=== PATIENT | female | born 1955 | race Caucasian/White ===

== ENCOUNTER → 2023-05-10 07:47 | Outpatient (CLI) | payer MEDICARE, SELFPAY ==
--- NOTE | ~2023-05-10 | US_ITS ---
US abdomen limited INDICATION: Elevated liver enzymes PROCEDURE: Realtime right upper abdominal ultrasound. COMPARISON: No prior studies for comparison. FINDINGS: The pancreas is normal without focal mass or pancreatic ductal dilation. Liver echotexture is normal without focal mass or intrahepatic biliary dilatation. There is normal directional flow i n the portal vein. Gallbladder is surgically absent. Common bile duct measures 7 mm. No sonographic Diop's sign. IMPRESSION: 1: Unremarkable limited abdominal ultrasound postcholecystectomy. Reviewed, dictated and finalized at location L.
== END ==
PROVIDERS: PCP Nurse Practitioner; Visit Provider Nurse Practitioner
DX: R74.8 Abnormal levels of other serum enzymes (principal)
CPT/HCPCS: 76705

== ENCOUNTER 2024-12-10 07:49 | Inpatient (IN) | payer MEDICARE, SELFPAY ==
--- NOTE | ~2024-12-10 | MR_ITS ---
EXAMINATION: MR abdomen wo/w con DATE: 12/11/2024 12:40 INDICATION: Splenic mass TECHNIQUE: Magnetic resonance imaging (MRI) of the abdomen was performed without and with 16 mL Multi anastacio intravenous contrast. Sequences included coronal T2-weighted SS-FSE, coronal and axial FS 2D-F IESTA, axial STIR FSE, axial T2-weighted SS-FSE, axial T2-weighted FS SS-FSE, axial diffusion-weighte d SE, axial dual-echo T1-weighted FSPGR, and axial and coronal T1-weighted LAVA. Postcontrast axial T 1-weighted LAVA images were obtained in a time course. Postcontrast coronal T1-weighted LAVA images w ere obtained. COMPARISON: None. FINDINGS: Heart size is normal. Mild discoid and dependent atelectasis at the bilateral lower lobes. No pericar dial or pleural effusion. Magnetic field artifact associated with cholecystectomy clips the gallbladd er fossa. Liver, pancreas, bilateral adrenal glands and left kidney are normal. 3 subcentimeter T2 hy perintense nonenhancing cysts in the right kidney. There are couple T2 hyperintense splenic lesions t he larger measuring 1.9 cm and the smaller measuring 7 mm. The larger lesion appears complex cystic w ith multiple internal septations best appreciated on the T2-weighted SS FSE imaging with subtle enhan cement on the postcontrast imaging. Visualized portion of the bowels are unremarkable including a nor mal appendix. T1 hyperintense fat saturating hemangioma at T11. Mild S-shaped scoliosis with thoracol umbar dextrocurvature and lumbar levocurvature with mild spondylosis. IMPRESSION: 1. A couple indeterminate splenic lesions the larger measuring 2.0 cm. Imaging features are suggestiv e of complex cystic lesion such as a lymphangioma, hemangioma or hamartoma. Malignant splenic lesions are rare and are also unchanged by the minimal enhancement. Recommend 6-12 month follow-up pre and p ostcontrast MRI. Reviewed, dictated and finalized at location B. IMPRESSION: 1. A couple indeterminate splenic lesions the larger measuring 2.0 cm. Imaging features are suggestive of complex cystic lesion such as a lymphangioma, alec ioma or hamartoma. Malignant splenic lesions are rare and are also unchanged by the minimal enhancement. Recommend 6-12 month follow-up pre and postcontrast M RI.
--- NOTE | ~2024-12-10 | CT_ITS ---
CT of the Abdomen and Pelvis: Indication: Abdominal pain Technique: 2.5 mm axial scans were obtained through the abdomen and pelvis following intravenous adm inistration of 100 cc of Omnipaque 350. Dose reduction technique was used on this scan by utilizing a utomated exposure control and iterative reconstruction technique. The dose-length product (DLP) was 4 45.07 mGy-cm. Findings: Scans through the lung bases are unremarkable. The liver, pancreas, adrenals and kidneys are within normal limits. Cholecystectomy clips are present . 2.0 cm hypodense splenic mass present, inconsistent with simple cyst. No evidence of aortic aneurys m. No lymphadenopathy. There is extensive wall thickening and pericolonic inflammatory change at the distal sigmoid colon, c ompatible with acute diverticulitis. Possible small intramural abscess measuring 1.5 cm. No free air evident. No bowel obstruction. Images through the pelvis were performed. Urinary bladder unremarkable. No pelvic mass seen. Impression: Acute sigmoid diverticulitis with possible small 1.5 cm intramural abscess. 2.0 cm indeterminate hypodense splenic mass. Consider further evaluation with MR as indicated. Spleni c lesions are most, likely benign. Reviewed, dictated and finalized at location M. Impression: Acute sigmoid diverticulitis with possible small 1.5 cm intramural abscess. 2.0 cm indeterminate hypodense splenic mass. Consider further evaluation with M R as indicated. Splenic lesions are most, likely benign.
--- OUTSIDE RECORDS SUMMARY | 2024-12-10 07:52 | XMS_ITS | Referral Summary ---
Author Organization [place] 739[address] [facility] Address [facility] [place] [address] Care Team Providers Care Service Porter Name Role Phone Neo Doyle NP Primary Care Provider [phone] Allergies Active Allergy Reactions Criticality Noted Date Comments Penicillins Hives Medium 06/20/2019 Medications levothyroxine (SYNTHROID) 88 mcg tablet 05/05/2020 Active losartan (COZAAR) 100 mg tablet 04/28/2020 Activ e pravastatin (PRAVACHOL) 80 mg tablet 05/05/2020 Active atorvastatin calcium (ATORVASTATIN ORAL) 05/15/2022 Active Active Problems Problem Noted Date Diagnosed Date Screening for colon cancer 05/11/2020 Overview (05/11/2020): Added automatically from request for surgery [id number] Social History Tobacco Use Types Packs/Day Years Used Date Smoking Tobacco: Never Smokeless Tobacco: Never Alcohol Use Standard Drinks/Week Comments Yes 0 (1 standard drink = 0.6 oz pur e alcohol) Socially Comments No Sex and Gender Information Value Date Recorded Sex Assigned at Not on file Legal Sex 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 Gender Identity Not on file Sexual Orientation Choose not to disclose 2021 1:01 PM CARB[employer] CAPT[employer]OWER PLANT OPERATOR Last Filed Vital Signs Vital Sign Reading Time Taken Comments Blood Pressure 112/60 06/29/2022 10:15 AM CARB[employer] CAPT[employer]OWER PLANT OPERATOR Pulse 70 05/20/2020 9:50 AM CDT Temperature 36.3 C (97.3 F) 05/20/2020 9:34 AM CDT Respiratory Rate 18 05/20/2020 9:50 AM CDT Oxygen Saturation 95% 05/20/2020 9:50 AM CDT Inhaled Oxygen Concentration - - Weight 75.3 kg (166 lb) 06/29/2022 10:15 AM CAR[employer] PLANT OPERATOR Height 167.6 cm (5' 6 ) 06/29/2022 10:15 AM CAR[employer] PLANT OPERATOR Body Mass Index 26.79 06/29/2022 10:15 AM CAR[employer] CAPT[employer] POWER PLANT OPERATOR Plan of Treatment Not on file Medical Devices Implanted Type Area Clinical Writer Device Identifier Shelf Expiration Date Model / Serial / Lot Bard Peripheral Vascular Ultraclip Bard 17ga 10cm 2 Trigger Permanent Ultrasound [id number] - [id number] Implanted:Qty: 1 on 08/16/2022 at [facility] Right: Breast Bard Peripheral Vascular [id number] / / Procedures Procedure Name Priority Date/Time Associated Diagnosis Comments SCREENING MAMMOGRAM BILATERAL W GABO Schedule Routine, Read Routine (OP Routine) 05/27/2024 9:56 AM CDT Screening mammogram, encounter for COLONOSCOPY 05/20/2020 9:07 AM CDT from Last 3 Months or Most Recently Relevant to Health Maintenance Results * Screening Mammogram Bilateral W Gabo (05/27/2024 9:56 AM CDT) Anatomical Region Laterality Modality Breast Bilateral Mammography Narrative 05/28/2024 5:22 PM CDT Mammogram Technique: Bilateral Digital Breast Tomosynthesis, Bilateral C-view 2D Screening mammogram. Views obtained: bilateral craniocaudal and bilateral mediolateral oblique. Computer Aided Detection was performed. Mammogram Findings: The present examination has been compared to prior imaging studies performed at [facility] on 05/29/2017 and 06/07/2017, and at [facility] on 05/21/2018, 06/03/2018, 11/25/2018, 06/20/2019, 07/05/2020, 06/02/2021, 06/08/2022, 08/02/2022 and 05/17/2023. There are scattered areas of fibroglandular density. There is no suspicious abnormality in either breast. There are no significant changes from the prior study. Impression: There is no mammographic evidence of malignancy. Annual screening mammography is recommended. OVERALL FINAL ASSESSMENT: BI-RADS CATEGORY 1: Negative. Procedure Note Zoraida Conti MD - 05/28/2024 Mammogram Technique: Bilateral Digital Breast Tomosynthesis, Bilateral C-view 2D Screening mammogram. Views obtained: bilateral craniocaudal and bilateral mediolateral oblique. Computer Aided Detection was performed. Mammogram Findings: The present examination has been compared to prior imaging studies performed at [facility] on 05/29/2017 and 06/07/2017, and at [facility] on 05/21/2018, 06/03/2018, 11/25/2018, 06/20/2019, 07/05/2020, 06/02/2021, 06/08/2022, 08/02/2022nd 05/17/2023. There are scattered areas of fibroglandular density. There is no suspicious abnormality in either breast. There are no significant changes from the prior study. Impression: There is no mammographic evidence of malignancy. Annual screening mammography is recommended. OVERALL FINAL ASSESSMENT: BI-RADS CATEGORY 1: Negative. us Self Screening Mammogram IMG MAMMO PROCEDURES Fi nal Result * COLONOSCOPY (05/20/2020 9:07 AM CDT) Anatomical Region Laterality Modality Other Narrative Procedure Note Froy Deleon MD - 05/20/2020 9:07 AM CDT ENDOSCOPY LAB Patient Name: Sylvia Burgess Procedure Date: 05/20/2020 9:07 AM Date of : 1955 Admit Type: Outpatient Age: 64 Gender: Female Attending MD: Gregorio Deleon M.D. Room: [facility] ENDOSCOPY ROOM 03 Note Status: Finalized Procedure: Colonoscopy Indications: surveillance: Personal history of colonic polyps, Last colonoscopy: June 2010 Providers: Gregorio Deleon M.D. Referring MD: Wilver Huddleston M.D. Medicines: Monitored Anesthesia Care Complications: No immediate complications. Estimated Blood Loss: Estimated blood loss was minimal. Procedure: Pre-Anesthesia Assessment: - Immediately prior to administration of medications,the patient was re-assessed for adequacy to receivesedatives. The benefits, risks and alternatives of the procedureand sedation were discussed and informed consent wasobtained. All questions were answered. Please refer to the signed informed consent document in the medical record. Thescope was passed under direct vision. The [id number] introduced through the anus and advanced to the cecum, identified by appendiceal orifice and ileocecal valve.The colonoscopy was performed without difficulty. Thepatient tolerated the procedure well. The quality of the bowel preparation was good. The quality of the bowelpreparation was evaluated using the BBPS ([place] Bowel Preparation Scale) with scores of: Right Colon = 3, TransverseColon = 3 and Left Colon = 3 (entire mucosa seen well with no residual staining, small fragments of stool or opaque liquid). The total BBPS score equals 9. Bowel prep was administered using a split dose. Findings: A 6 mm polyp was found in the descending colon. The polyp wassessile. The polyp was removed with a cold snare. Resection and retrieval were complete. Multiple small and large-mouthed diverticula were found in thesigmoid colon and descending colon. The exam was otherwise without abnormality on direct and retroflexion views. Impression: - One 6 mm polyp in the descending colon, removed witha cold snare. Resected and retrieved. - Diverticulosis in the sigmoid colon and in the descending colon. - The examination was otherwise normal on direct and retroflexion views. Recommendation: - Await pathology results. Repeat colonoscopy in 5years for surveillance. Electronically signed by Gregorio Deleon MD Gregorio Deleon M.D. 05/20/2020 9:30:32 AM Number of Addenda: 0 Note Initiated On: 05/20/2020 9:07 AM Froy Deleon MD ENDOSCOPY PROCEDURES Final Result from Last 3 Months or Most Recently Relevant to Health Maintenance Insurance [facility] MEDICARE ADVANTAGE [facility] Address: [facility] [address] [place] [address] Rodolfo GREEN, ARNULFO [id number] UHC MEDICARE ADVANTAGE [facility] Address: [address] [address] [place] [address] [facility] MEDICARE ADVANTAGE [facility] Address: [address] [address] [place] [address] Advance Directives For more information, please contact: [phone] * Full Code (Latest Code Status on File) Date Activated Date Inactivated Comments 05/20/2020 8:28 AM 05/20/2020 2:32 PM Care Teams Service Porter Relationship Specialty Start Date End Date Neo Doyle NP [address] [place] [address] PCP - General Nurse Practitioner 05/09/23
--- OUTSIDE RECORDS SUMMARY | 2024-12-10 07:52 | XMS_ITS | Clinical Summary ---
Author Organization [place] [address] [facility] Address [facility] [place] [address] Care Team Providers Care Records Clerk Name Role Phone Neo Doyle NP Primary Care Provider Allergies Active Allergy Reactions Criticality Noted Date Comments Penicillins Hives Medium 06/20/2019 Medications levothyroxine (SYNTHROID) 88 mcg tablet 05/05/2020 Active losartan (COZAAR) 100 mg tablet 04/28/2020 Activ e pravastatin (PRAVACHOL) 80 mg tablet 05/05/2020 Active atorvastatin calcium (ATORVASTATIN ORAL) 05/15/2022 Active Active Problems Problem Noted Date Diagnosed Date Screening for colon cancer 05/11/2020 Overview (05/11/2020): Added automatically from request for surgery [id number] Surgical History Surgery Date Site/Laterality Comments BREAST BIOPSY 07/08/2019 Right COLONOSCOPY CHOLECYSTECTOMY TUBAL LIGATION Medical History Medical History Date Comments Hx of adenomatous colonic polyps 2005 Colon polyp Hypertension Hyperlipidemia Hypothyroidism Family History Medical History Relation Name Comments Breast cancer Sister Ovarian cancer Neg Hx Relation Name Status Comments Sister Alive Social History Tobacco Use Types Packs/Day Years Used Date Smoking Tobacco: Never Smokeless Tobacco: Never Alcohol Use Standard Drinks/Week Comments Yes 0 (1 standard drink = 0.6 oz pur e alcohol) Socially Comments No Sex and Gender Information Value Date Recorded Sex Assigned at Not on file Legal Sex Female 9:21 PM VP DELIVERY Gender Identity Not on file Sexual Orientation Choose not to disclose 2021 1:01 PM VP DELIVERY Obstetrics History Para Term AB IAB SAB Ectopic Multiple Livin g Live Births 3 3 3 3 3 Date Outcome GA Total Labor Labor/2nd/3rd Weight Sex Type Anes PTL Evy A1 A5 Name Clin Term Term Term Last Filed Vital Signs Vital Sign Reading Time Taken Comments Blood Pressure 112/60 06/29/2022 10:15 AM VP DELIVERY Pulse 70 05/20/2020 9:50 AM CDT Temperature 36.3 C (97.3 F) 05/20/2020 9:34 AM CDT Respiratory Rate 18 05/20/2020 9:50 AM CDT Oxygen Saturation 95% 05/20/2020 9:50 AM CDT Inhaled Oxygen Concentration - - Weight 75.3 kg (166 lb) 06/29/2022 10:15 AM VP DELIVERY Height 167.6 cm (5' 6 ) 06/29/2022 10:15 AM VP DELIVERY Body Mass Index 26.79 06/29/2022 10:15 AM VP DELIVERY Plan of Treatment Health Maintenance Due Date Last Done Comments Depression Screening 1955 Hepatitis C Screening 1955 Osteoporosis Screening-Bone Density Scan 1955 DTaP/Tdap/Td Vaccine (1 - Tdap) 1965 Hepatitis B Screening 1972 Pneumococcal vaccine 65+ (1 of 1 - PCV) 2004 Zoster Vaccine (1 of 2) 2004 Well Visit 65+ 11/16/2019 Fall Risk Assessment 05/20/2021 05/20/2020 Influenza Vaccine (Season Ended) 2025 05/17/20 23, 05/22/2012 Breast Cancer Screening-Mammogram 05/27/2025 05/27/2024, 05/17/2023, 08/02/2022, Additional history exists Colon Cancer Screening-Colonoscopy 05/20/2030 05/20/2020 Colon Cancer Screening-CT Colonography Discontinued 05/20/2020 Colon Cancer Screening-DNA Stool Discontinued 05/20/20 Colon Cancer Screening-FIT Discontinued 05/20/2020 Colon Cancer Screening-Sigmoidoscopy Discontinued 05/20/2020 Medical Devices Implanted Type Area Operations Examiner Device Identifier Shelf Expiration Date Model / Serial / Lot Bard Peripheral Vascular Ultraclip Bard 17ga 10cm 2 Trigger Permanent Ultrasound [id number] - [id number] Implanted:Qty: 1 on 08/16/2022 at [facility] Right: Breast Bard Peripheral Vascular [id number] / / Procedures Procedure Name Priority Date/Time [...] compared to prior imaging studies performed at [facility] on 05/29/2017 and 06/07/2017, and at [facility] on 05/21/2018, 06/03/2018, 11/25/2018, 06/20/2019, 07/05/2020, 06/02/2021, [...] compared to prior imaging studies performed at [facility] on 05/29/2017 and 06/07/2017, and at [facility] on 05/21/2018, 06/03/2018, 11/25/2018, 06/20/2019, 07/05/2020, 06/02/2021, [...] Female Attending MD: Gregorio Deleon M.D. Room: [facility] ENDOSCOPY ROOM 03 Note Status: Finalized [...] Thescope was passed under direct vision. The [id number] introduced through the anus and advanced to the cecum, identified by appendiceal orifice and ileocecal valve.The colonoscopy was performed without difficulty. Thepatient tolerated the procedure well. The quality of the bowel preparation was good. The quality of the bowelpreparation was evaluated using the BBPS ([place] Bowel Preparation Scale) with scores of: Right [...] surveillance. Electronically signed by Gregorio Deleon MD Wilber HenryD. 05/20/2020 9:30:32 AM Number of Addenda: 0 Note Initiated On: 05/20/2020 9:07 AM Froy Deleon MD ENDOSCOPY PROCEDURES Final Result from Last 3 Months or Most Recently Relevant to Health Maintenance Insurance [facility] MEDICARE ADVANTAGE UHC MEDICARE ADVANTAGE UHC MEDICARE ADVANTAGE Advance Directives For more information, please contact: [phone] * Full Code (Latest Code Status on File) Date Activated Date Inactivated Comments 05/20/2020 8:28 AM 05/20/2020 2:32 PM Care Teams Records Clerk Relationship Specialty Start Date End Date Neo Doyle NP [address] [place] [address] PCP - General Nurse Practitioner 05/09/23
[2024-12-10 08:01] VITALS: BP 129/68; PULSE 78; RESP 14; O2SAT 94
[2024-12-10 08:10] LABS: Basophils Percent Auto 0.2 % (0.2-1.2); Eosinophils Absolute Auto 0.1 K/mm3 (0-0.3); Eosinophils Percent Auto 0.8 % (0-4.4); Hemoglobin 13.6 g/dL (12.0-15.0); Immature Granulocyte Absolute 0.05 K/mm3 (0.00-0.031); Immature Granulocyte Percent A 0.4 % (0-0.5); Lymphocytes Absolute Auto 2.92 K/mm3 (0.9-3.2); Lymphocytes Percent Auto 24.3 % (18.3-44.2); Mean Corpuscular HGB Conc 31.6 g/dl (32-36); Mean Corpuscular Hemoglobin 27.8 pg (26-34); Mean Corpuscular Volume 87.8 fl (80-100); Monocytes Absolute Auto 1.4 K/mm3 (0.1-0.6); Neutrophils Absolute Auto 7.5 K/mm3 (1.3-6.7); Neutrophils Percent Auto 62.3 % (45.5-73.1); Platelet Count Result 235 k/mm3 (150-375); Red Cell Distribution Width 14.6 % (11.5-14.5)
[2024-12-10 08:22] LABS: Alanine Aminotransferase 37 U/L (6-35); Albumin Level 4.1 g/dL (3.5-5.1); Alkaline Phosphatase 60 U/L (38-126); Anion Gap 8 mmol/L (4-12); Aspartate Amino Transferase 30 U/L (14-36); Bilirubin,Total 0.6 mg/dL (0.2-1.3); Blood Urea Nitrogen 14 mg/dL (7-17); Calcium 9.9 mg/dL (8.4-10.2); Carbon Dioxide 27 mmol/L (22-30); Chloride 103 mmol/L (98-107); Estimated CRCL calculation 57 ml/min; Estimated Glomerular Filt Rate > 60; Glucose 112 mg/dL (65-110); Lipase 70 U/L (23-300); Sodium 138 mmol/L (137-145)
--- OUTSIDE RECORDS SUMMARY | 2024-12-10 08:22 | XMS_ITS | Referral Summary ---
Author Organization [place] [address]267[address] [facility] Address [facility] [place] [address] Care Team Providers Care Sql Architect Name Role Phone Neo Doyle NP Primary Care Provider [phone] Allergies Active Allergy Reactions Criticality Noted Date Comments Penicillins Hives Medium 06/20/2019 Medications levothyroxine (SYNTHROID) 88 mcg tablet 05/05/2020 Active losartan (COZAAR) 100 mg tablet 04/28/2020 Activ e pravastatin (PRAVACHOL) 80 mg tablet 05/05/2020 Active atorvastatin calcium (ATORVASTATIN ORAL) 05/15/2022 Active Active Problems Problem Noted Date Diagnosed Date Screening for colon cancer 05/11/2020 Overview (05/11/2020): Added automatically from request for surgery [id number] Social History Tobacco Use Types Packs/Day Years Used Date Smoking Tobacco: Never Smokeless Tobacco: Never Alcohol Use Standard Drinks/Week Comments Yes 0 (1 standard drink = 0.6 oz pur e alcohol) Socially Comments No Sex and Gender Information Value Date Recorded Sex Assigned at Not on file 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 Gender Identity Not on file Sexual Orientation Choose not to disclose 2021 1:01 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 Last Filed Vital Signs Vital Sign Reading Time Taken Comments Blood Pressure 112/60 06/29/2022 10:15 AM GLOVE PARTS CUTTER Pulse 70 05/20/2020 9:50 AM CDT Temperature 36.3 C (97.3 F) 05/20/2020 9:34 AM CDT Respiratory Rate 18 05/20/2020 9:50 AM CDT Oxygen Saturation 95% 05/20/2020 9:50 AM CDT Inhaled Oxygen Concentration - - Weight 75.3 kg (166 lb) 06/29/2022 10:15 AM GLOVE PARTS CUTTER Height 167.6 cm (5' 6 ) 06/29/2022 10:15 AM GLOVE PARTS CUTTER Body Mass Index 26.79 06/29/2022 10:15 AM GLOVE PARTS CUTTER Plan of Treatment Not on file Medical Devices Implanted Type Area Face Hardener Device Identifier Shelf Expiration Date Model / Serial / Lot Bard Peripheral Vascular Ultraclip Bard 17ga 10cm 2 Trigger Permanent Ultrasound [id number] - [id number] Implanted:Qty: 1 on 08/16/2022 at [facility] Right: Breast Bard Peripheral Vascular [id number] / / Procedures Procedure Name Priority Date/Time [...] compared to prior imaging studies performed at [facility] on 05/29/2017 and 06/07/2017, and at [facility] on 05/21/2018, 06/03/2018, 11/25/2018, 06/20/2019, [...] compared to prior imaging studies performed at [facility] on 05/29/2017 and 06/07/2017, and at [facility] on 05/21/2018, 06/03/2018, 11/25/2018, 06/20/2019, [...] Female Attending MD: Gregorio Deleon M.D. Room: [facility] ENDOSCOPY ROOM 03 Note Status: Finalized [...] Thescope was passed under direct vision. The [id number] introduced through the anus and advanced to the cecum, identified by appendiceal orifice and ileocecal valve.The colonoscopy was performed without difficulty. Thepatient tolerated the procedure well. The quality of the bowel preparation was good. The quality of the bowelpreparation was evaluated using the BBPS ([place] Bowel Preparation Scale) with scores of: Right [...] Recently Relevant to Health Maintenance Insurance [facility] MEDICARE ADVANTAGE [facility] Address: [facility] [address] [place] [address] Rodolfo GREEN, ARNULFO [id number] UHC MEDICARE ADVANTAGE [facility] MEDIC[facility] Address: [address] [address] [place] [address] [facility] MEDICARE ADVANTAGE [facility] Address: [address] [address] [place] [address] Advance Directives For more information, please contact: [phone] * Full Code (Latest Code Status on File) Date Activated Date Inactivated Comments 05/20/2020 8:28 AM 05/20/2020 2:32 PM Care Teams Sql Architect Relationship Specialty Start Date End Date Neo Doyle NP [address] [place] [address] PCP - General Nurse Practitioner 05/09/23
--- OUTSIDE RECORDS SUMMARY | 2024-12-10 08:22 | XMS_ITS | Clinical Summary ---
Author Organization [place] [id number] [facility] Address [facility] [place] [address] Care Team Providers Care Shipmaster Name Role Phone Neo Doyle NP Primary Care Provider [phone] Allergies Active Allergy Reactions Criticality Noted Date Comments Penicillins Hives Medium 06/20/2019 Medications levothyroxine (SYNTHROID) 88 mcg tablet 05/05/2020 Active losartan (COZAAR) 100 mg tablet 04/28/2020 Activ e pravastatin (PRAVACHOL) 80 mg tablet 05/05/2020 Active atorvastatin calcium (ATORVASTATIN ORAL) 05/15/2022 Active Active Problems Problem Noted Date Diagnosed Date Screening for colon cancer 05/11/2020 Overview (05/11/2020): Added automatically from request for surgery [id number] Surgical History Surgery Date Site/Laterality Comments BREAST [...] on file Legal Sex Female 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 Gender Identity Not on file Sexual Orientation Choose not to disclose 2021 1:01 PM BOTTLE CASER Obstetrics History Para Term AB IAB SAB Ectopic Multiple Livin g Live Births 3 3 3 3 3 Date Outcome GA Total Labor Labor/2nd/3rd Weight Sex Type Anes PTL Evy A1 A5 Name Clin Term Term Term Last Filed Vital Signs Vital Sign Reading Time Taken Comments Blood Pressure 112/60 06/29/2022 10:15 AM BOTTLE CASER Pulse 70 05/20/2020 9:50 AM CDT Temperature 36.3 C (97.3 F) 05/20/2020 9:34 AM CDT Respiratory Rate 18 05/20/2020 9:50 AM CDT Oxygen Saturation 95% 05/20/2020 9:50 AM CDT Inhaled Oxygen Concentration - - Weight 75.3 kg (166 lb) 06/29/2022 10:15 AM BOTTLE CASER Height 167.6 cm (5' 6 ) 06/29/2022 10:15 AM BOTTLE CASER Body Mass Index 26.79 06/29/2022 10:15 AM BOTTLE CASER Plan of Treatment Health Maintenance Due Date [...] Discontinued 05/20/2020 Medical Devices Implanted Type Area Mesh Cutter Device Identifier Shelf Expiration Date Model / Serial / Lot Bard Peripheral Vascular Ultraclip Bard 17ga 10cm 2 Trigger Permanent Ultrasound [id number] - [id number] Implanted:Qty: 1 on 08/16/2022 at [facility] Right: Breast Bard Peripheral Vascular [id number] / / Procedures Procedure Name Priority Date/Time [...] compared to prior imaging studies performed at [facility] on 05/29/2017 and 06/07/2017, and at [facility] on 05/21/2018, 06/03/2018, 11/25/2018, 06/20/2019, [...] compared to prior imaging studies performed at [facility] on 05/29/2017 and 06/07/2017, and at [facility] on 05/21/2018, 06/03/2018, 11/25/2018, 06/20/2019, [...] Female Attending MD: Gregorio Deleon M.D. Room: [facility] ENDOSCOPY ROOM 03 Note Status: Finalized Procedure: [...] Thescope was passed under direct vision. The [id number] introduced through the anus and advanced to the cecum, identified by appendiceal orifice and ileocecal valve.The colonoscopy was performed without difficulty. Thepatient tolerated the procedure well. The quality of the bowel preparation was good. The quality of the bowelpreparation was evaluated using the BBPS ([place] Bowel Preparation Scale) with scores of: Right [...] Recently Relevant to Health Maintenance Insurance [facility] MEDICARE ADVANTAGE [facility] MEDIC[facility] Address: [address] [address] UHC MEDICARE ADVANTAGE [facility] Address: [address] [address] UHC MEDICARE ADVANTAGE Advance Directives For more information, please contact: [phone] * Full Code (Latest Code Status on File) Date Activated Date Inactivated Comments 05/20/2020 8:28 AM 05/20/2020 2:32 PM Care Teams Shipmaster Relationship Specialty Start Date End Date Neo Doyle NP [address] [place] [address] PCP - General Nurse Practitioner 05/09/23
[2024-12-10] MEDS: ONDANSETRON INJ 4 MG/2 ML VIAL IV PUSH (08:58)
[2024-12-10] MEDS: SODIUM CHLORIDE 0.9% IV 1,000 ML 999 ML IV CONT (08:58)
[2024-12-10] MEDS: MORPHINE SULFATE (*CRX) 4 MG/ML INJ 2 MG IV PUSH (08:59)
[2024-12-10 09:04] VITALS: BP 114/74; PULSE 71; RESP 14; O2SAT 97
--- NOTE | 2024-12-10 09:38 | ED_ITS ---
HPI - General Adult General Chief complaint: Abdominal Pain Stated complaint: LLQ pain Time Seen by Provider: 12/10/24 08:05 History of Present Illness HPI narrative: Patient is a 6-year-old female who presents ER with left lower quadrant abdominal pain. Intermittent pain over last month. Worsening over last week. Very tender worse with movement. Has had some diarrhea. NNo chest pain or chest pressure. No urinary symptoms. Related Data Home Medications ?Medication ?Instructions ?Recorded ?Confirmed ?Last Taken ?Type losartan 100 mg tablet 50 mg PO DAILY 12/10/24 12/10/24 12/09/24 21:30 History 50 mg Allergies Allergy/AdvReac Type Severity Reaction Status Date / Time penicillin G Allergy Mild hives Verified 12/10/24 07:50 Review of Systems 2 Review of Systems: All systems reviewed & are unremarkable except as noted in HPI and below Constitutional: Constitutional: Reports no additional constitutional complaints Cardiovascular: Cardiovascular: Reports no additional cardiovascular complaints Respiratory: Respiratory: Reports no additional respiratory complaints Gastrointestinal: Gastrointestinal: Reports no additional gastrointestinal complaints [facility] Past Medical History Medical History (Updated 12/10/24 @ 18:47 by Kalia Martin MD) GERD (gastroesophageal reflux disease) Hypothyroidism History of retinal detachment Right Eye Essential hypertension Diverticulosis Mixed hyperlipidemia Surgical History Surgical History (Updated 12/10/24 @ 12:27 by Lizbeth Bentley APRN) History of tubal ligation History of tonsillectomy History of cholecystectomy Family History Family History (Updated 12/10/24 @ 12:12 by Mindy Huertas RN) Grandparent Family history of lung cancer Carcinoma of colon Mother Family history of osteoarthritis Family history of heart disease in male family member before age 55 Family history of elevated blood lipids Family history of diabetes mellitus in first degree relative Hypertension Father Patient's father is in good health Family history of Alzheimer's disease Sibling Breast cancer Social History Social History Smoking status: Never smoker Second hand tobacco smoke exposure: No Alcohol intake: current Drinks per week: 2 Substance use: never Substance use type: does not use Do You Feel Safe in your Home?: Yes Lack of Transportation: No Lack of Food: Never True Current Housing: I Have Housing Concerned About Future Housing: No Difficulty Paying Gas/Electric Bills: No Difficulty Paying for Meds: No Currently Unemployed: No Education: Associate Degree Difficulty w/ Childcare or Family Care: No Spiritual care concerns: No Exam 2 Narrative: GENERAL: Well-appearing, well-nourished, and in no acute distress. HEAD: Normocephalic, atraumatic. ENT: Mucous membranes moist. CHEST: Clear to auscultation. No respiratory distress. HEART: Regular rate and rhythm. Normal peripheral pulses. ABDOMEN: Soft, tender palpation left lower quadrant with guarding, nondistended, normal active bowel sounds. EXTREMITIES: Normal range of motion. No edema. SKIN: Warm, dry, no rash. NEURO: Alert and oriented x3. PSYCH: Normal mood and affect. Course Course Emergency Course: 938: Discussed with General surgery. Recommends hospitalist admission. They are happy to consult if needed but would not drain at this time. Recommend IV antibiotics. Vital Signs Vital signs: Vital Signs Pulse Rate 78 12/10/24 08:01 Respiratory Rate 14 12/10/24 08:01 Blood Pressure 129/68 12/10/24 08:01 Pulse Oximetry 94 12/10/24 08:01 Temperature 97.9 F 12/10/24 14:00 Pulse Rate 70 12/10/24 14:00 Respiratory Rate 18 12/10/24 14:00 Blood Pressure 109/59 L 12/10/24 14:00 Pulse Oximetry 96 12/10/24 14:00 Oxygen Delivery Room Air 12/10/24 12:30 Medical Decision Making Vital Signs Vital Signs: Vital Signs Pulse Rate 78 12/10/24 08:01 Respiratory Rate 14 12/10/24 08:01 Blood Pressure 129/68 12/10/24 08:01 Pulse Oximetry 94 12/10/24 08:01 Temperature 97.9 F 12/10/24 14:00 Pulse Rate 70 12/10/24 14:00 Respiratory Rate 18 12/10/24 14:00 Blood Pressure 109/59 L 12/10/24 14:00 Pulse Oximetry 96 12/10/24 14:00 Oxygen Delivery Room Air 12/10/24 12:30 Lab Data 12/10/24 08:04 12/10/24 08:04 Labs: Lab Results 12/10/24 12/10/24 Range/Units 08:04 09:51 WBC 12.0 H (4.5-10.0) K/mm3 RBC 4.90 (4.2-5.4) M/mm3 Hgb 13.6 (12.0-15.0) g/dL Hct 43.0 (37.0-47.0) % MCV 87.8 (80-100) fl MCH 27.8 (26-34) pg MCHC 31.6 L (32-36) g/dl RDW 14.6 H (11.5-14.5) % Plt Count 235 (150-375) k/mm3 MPV 10.0 (7.4-10.4) fl Immature Gran % (Auto) 0.4 (0-0.5) % Neut % (Auto) 62.3 (45.5-73.1) % Lymph % (Auto) 24.3 (18.3-44.2) % [place] % (Auto) 12.0 H (2.6-8.5) % Eos % (Auto) 0.8 (0-4.4) % Baso % (Auto) 0.2 (0.2-1.2) % Lymph # (Auto) 2.92 (0.9-3.2) K/mm3 [place] # (Auto) 1.4 H (0.1-0.6) K/mm3 Eos # (Auto) 0.1 (0-0.3) K/mm3 Baso # (Auto) 0.0 (0.0-0.1) K/mm3 Abs Immat Gran (auto) 0.05 H (0.00-0.031) K/mm3 Absolute Neuts (auto) 7.5 H (1.3-6.7) K/mm3 Absolute Nucleated RBC 0.000 (0.0-0.012) K/mm3 Nucleated RBC % 0.0 (0.0-0.2) % Sodium 138 (137-145) mmol/L Potassium 4.0 (3.4-5.0) mmol/L Chloride 103 (98-107) mmol/L Carbon Dioxide 27 (22-30) mmol/L Anion Gap 8 (4-12) mmol/L BUN 14 (7-17) mg/dL Creatinine 0.75 (0.7-1.0) mg/dL Estim Creat Clear Calc 57 ml/min Estimated GFR > 60 (59 - ) Glucose 112 H (65-110) mg/dL Calcium 9.9 (8.4-10.2) mg/dL Total Bilirubin 0.6 (0.2-1.3) mg/dL AST 30 (14-36) U/L ALT 37 H (6-35) U/L Alkaline Phosphatase 60 (38-126) U/L Total Protein 7.0 (6.3-8.2) g/dL Albumin 4.1 (3.5-5.1) g/dL Lipase 70 (23-300) U/L Urine Color Yellow (Yellow) Urine Appearance Clear (Clear) Urine pH 6.0 (5.0-9.0) Ur Specific [place] <= 1.005 (1.001-1.035) Urine Protein Negative (Negative) mg/dL Urine Glucose (UA) Negative (Negative) mg/dL Urine Ketones Negative (Negative) mg/dL Ur Blood (Man) Trace-intact H (Negative) Urine Nitrate Negative (Negative) Urine Bilirubin Negative (Negative) Urine Urobilinogen 0.2 (<2.0) mg/dL Leukocyte Esterase Rfl 1+ H (Negative) RAOUL/UL Urine RBC 0-2 (0-2) /hpf Urine WBC 6-10 H (0-3) /hpf Ur Squamous Epith Cells None seen (Few) /hpf Urine Bacteria None seen /hpf Urine Casts 0-2 Imaging Data Radiologist's impression: ITS Impressions Abdomen/Pelvis CT 12/10/24 09:02 Impression: Acute sigmoid diverticulitis with possible small 1.5 cm intramural abscess. 2.0 cm indeterminate hypodense splenic mass. Consider further evaluation with MR as indicated. Splenic lesions are most, likely benign. Discharge Plan Discharge Clinical Impression: Diverticulitis of intestine with abscess Patient Disposition: Still a Patient Condition: Stable
[2024-12-10 09:53] VITALS: BP 140/73; PULSE 67; RESP 15; TEMP 36.7; O2SAT 99
[2024-12-10 10:03] LABS: Bacteria Urine None Seen /hpf; Non Pathogenic Casts 0-2; RBC Urine 0-2 /hpf (0-2); Squamous Epithelial Cell Urine None Seen /hpf (Few)
[2024-12-10 10:06] LABS: Add Urine Microscopic? YES
[2024-12-10 10:07] LABS: Appearance Urine Clear (Clear); Bilirubin Urine Negative (Negative); Blood Urine Trace-intact (Negative); Color Urine Yellow (Yellow); Glucose Urine UA Negative (Negative); Ketones Urine Negative (Negative); Nitrate Urine Negative (Negative); Protein Urine Negative (Negative); Specific Grav Ur <= 1.005 (1.001-1.035); Urobilinogen Urine 0.2 mg/dL (<2.0)
[2024-12-10 10:08] LABS: Leukocyte Esterase Ur 1+ LEU/UL (Negative)
[2024-12-10] MEDS: metroNIDAZOLE 500 MG/ISO 100ML 500 MG/100 ML BAG 100 MG IVPB ×2 (10:14→17:19)
[2024-12-10 12:02] VITALS: BMI 27.8
--- NOTE | 2024-12-10 12:07 | ADMGEN ---
This patient, Sylvia Burgess, was admitted to 3 Med Surg Room 303-01. Patient/family oriented to hospital policies and general routines including ID bracelet, bed and alarms, visiting hours, pain management, procedures, bathroom and other care routines, personal items, smoking policy, room service/diet, and visiting hours. Information on how to activate the Rapid Response Team has been discussed. Patient/Family are encouraged to report perceived risks to care and to ask questions if they do not understand what they are told or what they should do.
--- NOTE | 2024-12-10 12:18 | P.HP_ITS ---
H&P: HPI History of Present Illness Date/Time: 12/10/24 12:18 Chief Complaint: Abdominal Pain Narrative: 69 y/o F with PMH of hypertension, hyperlipidemia, and hyperthyroidism presents here with abdominal pain. The patient presents here from home for further evaluation of abdominal pain on 12/10/24. She reports that she has been experiencing left lower abdominal pain with radiation into her left groin since mid September. She initially had it for just a few days and resolved with Ibuprofen. Then returned in the last few days but this time did not go away with Ibu and has been more progressive. She reports the pain has been constant but the severity varied widely. No alleviating or aggravating factors. She describes as sharp and crampy. She then developed constipation, she estimates she did not pass a bowel movement for 3 days. She then developed diarrhea yesterday, 12/09. She estimates she has gone 12 times in last 24 hours. Today developed mild nausea without vomiting. She denies accompanying fever, chills, body aches. She has a history of a cholecystectomy and tubal ligation, no further GI/ surgeries. Denies any significant GI history. Initial VS at presentation: 90? F, HR 70, RR 14, 129/60, and 94% on RA. ED workup showed: WBC 12.0, no anemia, no significant electrolyte derangements, creatinine 0.75 and GFR >60, glucose 112, UA suspicious for UTI. CT of the abdomen/pelvis showed an acute sigmoid diverticulitis with possible small 1.5 cm intramural abscess, 2 cm indeterminate hypodense splenic mass. Review of Systems Review of Systems: All systems reviewed & are unremarkable except as noted in HPI and below [facility] Past Medical History Medical History GERD (gastroesophageal reflux disease) Hypothyroidism History of retinal detachment Right Eye Essential hypertension Diverticulosis Mixed hyperlipidemia Surgical History Surgical History History of tubal ligation History of tonsillectomy History of cholecystectomy Family History Family History Grandparent Family history of lung cancer Carcinoma of colon Mother Family history of osteoarthritis Family history of heart disease in male family member before age 55 Family history of elevated blood lipids Family history of diabetes mellitus in first degree relative Hypertension Father Patient's father is in good health Family history of Alzheimer's disease Sibling Breast cancer Social History Social History Smoking status: Never smoker Second hand tobacco smoke exposure: No Alcohol intake: current Drinks per week: 2 Substance use: never Substance use type: does not use Do You Feel Safe in your Home?: Yes Lack of Transportation: No Lack of Food: Never True Current Housing: I Have Housing Concerned About Future Housing: No Difficulty Paying Gas/Electric Bills: No Difficulty Paying for Meds: No Currently Unemployed: No Education: Associate Degree Difficulty w/ Childcare or Family Care: No Spiritual care concerns: No Meds Home Medications and Allergies Home Medications ?Medication ?Instructions ?Recorded ?Confirmed ?Type atorvastatin 40 mg tablet 40 mg PO DAILY #90 tabs 05/20/24 12/10/24 Rx levothyroxine 50 mcg tablet 50 mcg PO DAILY #90 tabs 08/15/24 12/10/24 Rx losartan 100 mg tablet 50 mg PO DAILY 12/10/24 12/10/24 History Allergies Allergy/AdvReac Type Severity Reaction Status Date / Time penicillin G Allergy Mild hives Verified 12/10/24 07:50 Vital Signs Vital Signs - 24 hr 12/10/24 08:01 12/10/24 09:04 12/10/24 09:53 Temperature 98.0 F Pulse Rate 78 71 67 Respiratory Rate 14 14 15 Blood Pressure 129/68 114/74 140/73 Pulse Oximetry 94 97 99 Exam Const: General: comfortable and no acute distress Other: , female, nontoxic appearance HENMT: Face/Nose/Sinus: Normal nares present Mouth: Yes moist mucous membranes Eyes: General: appearance normal, both eyes and all related structures Sclera: sclerae normal Pupils: Equal, round and reactive pupils present EOM: EOMs intact bilaterally Resp: Effort & Inspection: normal respiratory effort Auscultation: clear to auscultation bilaterally Cardio: Rate: regular rate Rhythm: regular rhythm Other: S1-S2 present without murmur, rub, ectopy GI: Other: Abdomen soft, nondistended. Tender in the left lower quadrant, no guarding. Normoactive bowel sounds in all quadrants. Skin: General skin exam: normal color and no rashes or lesions noted Wounds: no wounds Neuro: Speech: normal speech Motor exam (neuro): 5/5 motor strength present throughout Sensory Exam: normal sensation Other: A&O x4 Extrem: General: normal to inspection Psych: Mental Status: mental status grossly normal Affect: normal affect Other: Good insight and judgment, pleasant H&P: Results Labs Labs: Short CBC 12/10/24 Range/Units 08:04 WBC 12.0 H (4.5-10.0) K/mm3 Hgb 13.6 (12.0-15.0) g/dL Hct 43.0 (37.0-47.0) % Plt Count 235 (150-375) k/mm3 BMP 12/10/24 08:04 Sodium 138 Potassium 4.0 Chloride 103 Carbon Dioxide 27 BUN 14 Creatinine 0.75 Glucose 112 H Calcium 9.9 Liver Function 12/10/24 Range/Units 08:04 Total Bilirubin 0.6 (0.2-1.3) mg/dL AST 30 (14-36) U/L ALT 37 H (6-35) U/L Alkaline Phosphatase 60 (38-126) U/L Albumin 4.1 (3.5-5.1) g/dL Urine 12/10/24 Range/Units 09:51 Urine Color Yellow (Yellow) Urine Appearance Clear (Clear) Urine pH 6.0 (5.0-9.0) Ur Specific [place] <= 1.005 (1.001-1.035) Urine Protein Negative (Negative) mg/dL Urine Glucose (UA) Negative (Negative) mg/dL Assessment and Plan Assessment and plan (1) Diverticulitis: Code(s): K57.92 - Diverticulitis of intestine, part unspecified, without perforation or abscess without bleeding Status: Acute Assessment and Plan: - CT abd/pelvis: Acute sigmoid diverticulitis with possible small 1.5 cm intramural abscess. 2.0 cm indeterminate hypodense splenic mass. Consider further evaluation with MR as indicated. Splenic lesions are most, likely benign. - started on ceftriaxone and metronidazole on 12/10 - ED discussed case with General Surgery. No indication for surgery at this time, happy to consult if needed. Will forego this time as she is not a surgical candidate. If patient does not clinically improve, will need formal consultation. - IV fluids: 1L bolus, now on 100 mL/hr x1L - clear liquid diet - pain medication prn - daily clinical reassessment for improvement (2) Splenic mass: Code(s): R16.1 - Splenomegaly, not elsewhere classified Status: Acute Assessment and Plan: - CT showing a 2 cm indeterminate hypodense splenic mass, recommended possible further evaluation via MR - MR abdomen ordered (3) Essential (primary) hypertension: Code(s): I10 - Essential (primary) hypertension Status: Chronic Assessment and Plan: - chronic, currently 140/73 - continue home medications: Losartan 50 mg daily - monitor Plan Diet: Clear liquid GI Prophylaxis: Not currently indicated DVT Prophylaxis: SCDs IV fluids: LR 100 mL/hr x1L Lines/Tubes: Peripheral IV Code Status: Full code Quality VTE Prophylaxis VTE prophylaxis: mechanical ordered Hospitalist MIPS Advance Care Plan I have confirmed that the patient's Advanced Care Plan is present, code status is documented, or surrogate decision maker is listed in patient medical record.: Yes Medication Reconciliation I have utilized all available resources to obtain, update and review the patients current medications (includes all prescriptions, OTC, herbals, cannabis, and nutritional supplements).: Yes
[2024-12-10 12:30] VITALS: BP 119/74; PULSE 73; RESP 18; TEMP 36.6; O2SAT 100
[2024-12-10] MEDS: LACTATED RINGERS 1,000 ML 100 ML IV CONT (12:41)
[2024-12-10] MEDS: HYDROcodone/acetaminophen (*CRX) 5-325 MG TABLET 1 TAB PO ×3 (13:21→21:03)
[2024-12-10 14:00] VITALS: BP 109/59; PULSE 70; RESP 18; TEMP 36.6; O2SAT 96
[2024-12-10 21:00] VITALS: BP 115/61; PULSE 70; RESP 16; TEMP 35.7; O2SAT 96
[2024-12-10] MEDS: ATORVASTATIN 40 MG TABLET PO (21:00)
[2024-12-10] MEDS: LOSARTAN POTASSIUM 50 MG TABLET PO (21:00)
[2024-12-10] MEDS: ACETAMINOPHEN 325 MG TABLET 650 MG PO (21:03)
[2024-12-10] MEDS: MORPHINE SULFATE (*CRX) 2 MG/ML INJ IV PUSH (22:13)
[2024-12-11] MEDS: metroNIDAZOLE 500 MG/ISO 100ML 500 MG/100 ML BAG 100 MG IVPB ×3 (01:34→16:58)
[2024-12-11] MEDS: HYDROcodone/acetaminophen (*CRX) 5-325 MG TABLET 1 TAB PO ×3 (01:36→20:56)
[2024-12-11 05:15] VITALS: BP 95/55; PULSE 75; RESP 20; TEMP 36.6; O2SAT 94
[2024-12-11] MEDS: LEVOTHYROXINE SODIUM 50 MCG TABLET PO (05:30)
[2024-12-11 06:58] LABS: Basophils Percent Auto 0.2 % (0.2-1.2); Eosinophils Absolute Auto 0.1 K/mm3 (0-0.3); Hematocrit 39.7 % (37.0-47.0); Hemoglobin 12.6 g/dL (12.0-15.0); Immature Granulocyte Absolute 0.03 K/mm3 (0.00-0.031); Immature Granulocyte Percent A 0.3 % (0-0.5); Lymphocytes Absolute Auto 2.58 K/mm3 (0.9-3.2); Lymphocytes Percent Auto 26.7 % (18.3-44.2); Mean Corpuscular HGB Conc 31.7 g/dl (32-36); Mean Corpuscular Hemoglobin 27.6 pg (26-34); Mean Corpuscular Volume 86.9 fl (80-100); Mean Platelet Volume 10.2 fl (7.4-10.4); Monocytes Absolute Auto 0.8 K/mm3 (0.1-0.6); Monocytes Percent Auto 8.7 % (2.6-8.5); Neutrophils Absolute Auto 6.1 K/mm3 (1.3-6.7); Neutrophils Percent Auto 63.1 % (45.5-73.1); Platelet Count Result 214 k/mm3 (150-375); Red Blood Count 4.57 M/mm3 (4.2-5.4); Red Cell Distribution Width 14.8 % (11.5-14.5); White Blood Count 9.7 K/mm3 (4.5-10.0)
[2024-12-11 07:08] LABS: Anion Gap 8 mmol/L (4-12); Blood Urea Nitrogen 9 mg/dL (7-17); Carbon Dioxide 26 mmol/L (22-30); Chloride 103 mmol/L (98-107); Estimated CRCL calculation 72 ml/min; Estimated Glomerular Filt Rate > 60; Glucose 106 mg/dL (65-110); Sodium 137 mmol/L (137-145)
[2024-12-11 07:41] VITALS: BP 108/63; PULSE 71
[2024-12-11] MEDS: ONDANSETRON INJ 4 MG/2 ML VIAL IV PUSH (07:45)
[2024-12-11 14:00] VITALS: BP 110/68; PULSE 72; RESP 18; TEMP 36.8; O2SAT 99
--- NOTE | 2024-12-11 14:56 | PM.IMPN ---
Progress Note: A&P Assessment and Plan (1) Diverticulitis: Code(s): K57.92 - Diverticulitis of intestine, part unspecified, without perforation or abscess without bleeding Status: Acute Assessment and Plan: - CT abd/pelvis showed acute diverticulitis with possibel small 1.5cm intramural abscess with splenic mass Acute sigmoid diverticulitis with possible small 1.5 cm intramural abscess. - started on ceftriaxone and metronidazole on 12/10 - pain medication prn advance diet (2) Splenic mass: Code(s): R16.1 - Splenomegaly, not elsewhere classified Status: Acute Assessment and Plan: - CT showing a 2 cm indeterminate hypodense splenic mass, recommended possible further evaluation via MR - MR abdomen ordered (3) Essential (primary) hypertension: Code(s): I10 - Essential (primary) hypertension Status: Chronic Assessment and Plan: - chronic, currently 140/73 - continue home medications: Losartan 50 mg daily - monitor Plan GI Prophylaxis: Not currently indicated DVT Prophylaxis: Lovenox Subjective Date/time seen: 12/11/24 14:56 Interval history: Comfortable at bedside start advancing diet today Review of Systems Review of Systems: All systems reviewed & are unremarkable except as noted in HPI and below Exam Narrative: tenderness in the LLQ. otherwise benign. Const: General: comfortable and no acute distress Other: , female, nontoxic appearance HENMT: Face/Nose/Sinus: Normal nares present Mouth: Yes moist mucous membranes Eyes: General: appearance normal, both eyes and all related structures Sclera: sclerae normal Pupils: Equal, round and reactive pupils present EOM: EOMs intact bilaterally Resp: Effort & Inspection: normal respiratory effort Auscultation: clear to auscultation bilaterally Cardio: Rate: regular rate Rhythm: regular rhythm Other: S1-S2 present without murmur, rub, ectopy GI: Other: Abdomen soft, nondistended. Tender in the left lower quadrant, no guarding. Normoactive bowel sounds in all quadrants. Skin: General skin exam: normal color and no rashes or lesions noted Wounds: no wounds Neuro: Cranial nerves: Yes Equal, round and reactive pupils present Speech: normal speech Motor exam (neuro): 5/5 motor strength present throughout Sensory Exam: normal sensation Other: A&O x4 Extrem: General: normal to inspection Psych: Mental Status: mental status grossly normal Affect: normal affect Other: Good insight and judgment, pleasant Objective Data Vital Signs Vital Signs: Vital Signs - 24 hr 12/10/24 20:00 12/10/24 21:00 12/11/24 05:15 Temperature 96.3 F L 97.8 F Pulse Rate 70 75 Respiratory Rate 16 20 Blood Pressure 115/61 95/55 L Pulse Oximetry 96 94 Oxygen Delivery Room Air 12/11/24 07:41 12/11/24 08:00 Temperature Pulse Rate 71 Respiratory Rate Blood Pressure 108/63 Pulse Oximetry Oxygen Delivery Room Air Intake/Output Intake/Output: Intake & Output 12/08/24 12/09/24 12/10/24 12/11/24 23:59 23:59 23:59 23:59 Intake Total 4230 1760 Balance 4230 1760 Meds/Results Medications: Active Medications Generic Name Dose Route Start Last Admin Trade Name Freq PRN Reason Stop Dose Admin Acetaminophen 650 mg 12/10/24 10:58 12/10/24 21:03 Acetaminophen 325 Mg Tablet PO 650 mg Q4H PRN Administration Mild Pain (1-3) or Fever Hydrocodone Bitart/Acetaminophen 1 tab 12/10/24 10:58 12/11/24 01:36 Hydrocodone/Acetaminophen (*Crx) 5-325 Mg Tablet PO 1 tab Q4H PRN Administration Pain Rated 4-6 Atorvastatin Calcium 40 mg 12/10/24 21:00 12/10/24 21:00 Atorvastatin 40 Mg Tablet PO 40 mg HS SHANTELL Administration Ceftriaxone Sodium 1 gm in 50 mls @ 100 mls/hr 12/11/24 09:00 12/11/24 08:15 Rocephin 1 Gm/Ns 50 Ml IVPB Infused Q24H SHANTELL Infusion Metronidazole 500 mg in 100 mls @ 100 mls/hr 12/10/24 18:00 12/11/24 10:10 Flagyl 500 Mg/Iso Soln 100 Ml IVPB Infused Q8H SHANTELL Infusion Levothyroxine Sodium 50 mcg 12/11/24 06:30 12/11/24 05:30 Levothyroxine Sodium 50 Mcg Tablet PO 50 mcg DAILY@0630 SHANTELL Administration Losartan Potassium 50 mg 12/10/24 21:00 12/10/24 21:00 Losartan Potassium 50 Mg Tablet PO 50 mg HS SHANTELL Administration Morphine Sulfate 2 mg 12/10/24 10:58 12/10/24 22:13 Morphine Sulfate (*Crx) 2 Mg/Ml Inj IV PUSH 2 mg Q2H PRN Administration Pain Rated 7-10 Ondansetron HCl 4 mg 12/10/24 10:58 12/11/24 07:45 Ondansetron Inj 4 Mg/2 Ml Vial IV PUSH 4 mg Q4H PRN Administration Nausea Radiology Results: ITS Impressions Abdomen/Pelvis CT 12/10/24 09:02 Impression: Acute sigmoid diverticulitis with possible small 1.5 cm intramural abscess. 2.0 cm indeterminate hypodense splenic mass. Consider further evaluation with MR as indicated. Splenic lesions are most, likely benign. Abdomen MRI 12/11/24 14:16 IMPRESSION: 1. A couple indeterminate splenic lesions the larger measuring 2.0 cm. Imaging features are suggestive of complex cystic lesion such as a lymphangioma, hemangioma or hamartoma. Malignant splenic lesions are rare and are also unchanged by the minimal enhancement. Recommend 6-12 month follow-up pre and postcontrast MRI. Labs Labs: Laboratory Results - last 24 hr 12/11/24 05:49 WBC 9.7 RBC 4.57 Hgb 12.6 Hct 39.7 MCV 86.9 MCH 27.6 MCHC 31.7 L RDW 14.8 H Plt Count 214 MPV 10.2 Immature Gran % (Auto) 0.3 Neut % (Auto) 63.1 Lymph % (Auto) 26.7 [place] % (Auto) 8.7 H Eos % (Auto) 1.0 Baso % (Auto) 0.2 Lymph # (Auto) 2.58 [place] # (Auto) 0.8 H Eos # (Auto) 0.1 Baso # (Auto) 0.0 Abs Immat Gran (auto) 0.03 Absolute Neuts (auto) 6.1 Absolute Nucleated RBC 0.000 Nucleated RBC % 0.0 Sodium 137 Potassium 4.0 Chloride 103 Carbon Dioxide 26 Anion Gap 8 BUN 9 D Creatinine 0.66 L Estim Creat Clear Calc 72 Estimated GFR > 60 Glucose 106 Calcium 9.0 Quality VTE Prophylaxis VTE prophylaxis: mechanical ordered
[2024-12-11 20:45] VITALS: BP 94/55; PULSE 75; RESP 16; TEMP 36.4; O2SAT 96
[2024-12-11] MEDS: ATORVASTATIN 40 MG TABLET PO (20:54)
[2024-12-12] MEDS: metroNIDAZOLE 500 MG/ISO 100ML 500 MG/100 ML BAG 100 MG IVPB (01:27)
[2024-12-12] MEDS: HYDROcodone/acetaminophen (*CRX) 5-325 MG TABLET 1 TAB PO (01:27)
[2024-12-12 05:00] VITALS: BP 102/64; PULSE 72; RESP 16; TEMP 35.7; O2SAT 98
[2024-12-12] MEDS: LEVOTHYROXINE SODIUM 50 MCG TABLET PO (05:53)
[2024-12-12 06:19] LABS: Basophils Percent Auto 0.2 % (0.2-1.2); Eosinophils Absolute Auto 0.1 K/mm3 (0-0.3); Eosinophils Percent Auto 2.3 % (0-4.4); Hematocrit 38.8 % (37.0-47.0); Hemoglobin 11.8 g/dL (12.0-15.0); Immature Granulocyte Absolute 0.01 K/mm3 (0.00-0.031); Immature Granulocyte Percent A 0.2 % (0-0.5); Lymphocytes Absolute Auto 2.96 K/mm3 (0.9-3.2); Lymphocytes Percent Auto 48.7 % (18.3-44.2); Mean Corpuscular HGB Conc 30.4 g/dl (32-36); Mean Corpuscular Hemoglobin 27.4 pg (26-34); Mean Platelet Volume 9.9 fl (7.4-10.4); Monocytes Absolute Auto 0.7 K/mm3 (0.1-0.6); Monocytes Percent Auto 11.2 % (2.6-8.5); Neutrophils Absolute Auto 2.3 K/mm3 (1.3-6.7); Neutrophils Percent Auto 37.4 % (45.5-73.1); Platelet Count Result 186 k/mm3 (150-375); Red Blood Count 4.31 M/mm3 (4.2-5.4); Red Cell Distribution Width 14.6 % (11.5-14.5); White Blood Count 6.1 K/mm3 (4.5-10.0)
[2024-12-12 06:36] LABS: Alanine Aminotransferase 68 U/L (6-35); Albumin Level 3.3 g/dL (3.5-5.1); Alkaline Phosphatase 58 U/L (38-126); Anion Gap 5 mmol/L (4-12); Aspartate Amino Transferase 46 U/L (14-36); Bilirubin,Total 0.1 mg/dL (0.2-1.3); Blood Urea Nitrogen 7 mg/dL (7-17); Calcium 8.9 mg/dL (8.4-10.2); Carbon Dioxide 30 mmol/L (22-30); Chloride 106 mmol/L (98-107); Estimated CRCL calculation 65 ml/min; Estimated Glomerular Filt Rate > 60; Glucose 100 mg/dL (65-110); Magnesium 2.1 mg/dL (1.6-2.3); Potassium 3.8 mmol/L (3.4-5.0); Sodium 141 mmol/L (137-145)
[2024-12-12] MEDS: ONDANSETRON HCL ODT 4 MG TABLET PO (09:32)
[2024-12-12] MEDS: levoFLOXacin 750 MG TABLET PO (11:07)
[2024-12-12] MEDS: metroNIDAZOLE 500 MG TABLET PO (11:08)
--- NOTE | 2024-12-12 11:34 | P.DS_ITS ---
DS: Admitting Diagnosis Discharge Date 12/12/24 Admitting Diagnosis abd DS: Discharge Diagnosis Discharge Diagnosis (1) Diverticulitis of intestine with abscess: Code(s): K57.80 - Diverticulitis of intestine, part unspecified, with perforation and abscess without bleeding Status: Acute DS: Summary Hospital Course Hospital Course: 69 y/o F with PMH of hypertension, hyperlipidemia, and hyperthyroidism presents here with abdominal pain. Initial VS at presentation: 90? F, HR 70, RR 14, 129/60, and 94% on RA. ED workup showed: WBC 12.0, no anemia, no significant electrolyte derangements, creatinine 0.75 and GFR >60, glucose 112, UA suspicious for UTI. CT of the abdomen/pelvis showed an acute sigmoid diverticulitis with possible small 1.5 cm intramural abscess, 2 cm indeterminate hypodense splenic mass. patient was started on LEvaquin and Flagyl, nausea, abd pain and leukocytosis resolved. patient is tolerating diet without problems. Discharged on 10 more days of Levaquin and Flagyl 500mg tid. F/u with PCp in 3-5 days Time Spent with Patient Time attestation: Total time spent providing and/or coordinating discharge services: DS: Data Data Completed and Pending Labs on day of discharge: Labs from last 24 hours 12/12/24 05:44 WBC 6.1 RBC 4.31 Hgb 11.8 L Hct 38.8 MCV 90.0 MCH 27.4 MCHC 30.4 L RDW 14.6 H Plt Count 186 MPV 9.9 Immature Gran % (Auto) 0.2 Neut % (Auto) 37.4 L Lymph % (Auto) 48.7 H [place] % (Auto) 11.2 H Eos % (Auto) 2.3 Baso % (Auto) 0.2 Lymph # (Auto) 2.96 [place] # (Auto) 0.7 H Eos # (Auto) 0.1 Baso # (Auto) 0.0 Abs Immat Gran (auto) 0.01 Absolute Neuts (auto) 2.3 Absolute Nucleated RBC 0.000 Nucleated RBC % 0.0 Sodium 141 Potassium 3.8 Chloride 106 Carbon Dioxide 30 Anion Gap 5 BUN 7 Creatinine 0.73 Estim Creat Clear Calc 65 Estimated GFR > 60 Glucose 100 Calcium 8.9 Magnesium 2.1 Total Bilirubin 0.1 L AST 46 H ALT 68 H Alkaline Phosphatase 58 Total Protein 6.0 L Albumin 3.3 L Discharge Plan Discharge Attending physician on discharge: Tejas Wyatt Discharging Clinician: Tejas Wyatt Anticipated Discharge Date/Time: 12/12/24 11:32 Patient Disposition: Home Activity: as tolerated Diet: as tolerated and low fiber Patient Instructions: Antibiotic Form Patient Language: Slovenian Stand Alone Forms: General Discharge Information Follow-up/Referrals: Neo Doyle APRN [Primary Care Provider] - (F/u with PCP in 3-5 day s) Discharge Medications: New metronidazole 500 mg Tablet 500 mg PO Q8HR 10 Days Qty: 30 0RF levofloxacin 750 mg tablet 750 mg PO DAILY 10 Days Qty: 10 0RF ondansetron 4 mg tablet,disintegrating 4 mg PO Q8H 3 Days Qty: 9 0RF Continued atorvastatin 40 mg tablet 40 mg PO DAILY Qty: 90 2RF Patient Comments: Hs losartan 100 mg tablet 50 mg PO DAILY Patient Comments: HS levothyroxine 50 mcg tablet 50 mcg PO DAILY Qty: 90 3RF Date of admission: 12/11/24 13:59 Primary Care Provider: Neo Doyle Admitting Provider: Tejas Wyatt Attending physician on admission: Tejas Wyatt Condition: Stable
== END 2024-12-12 11:50 | disposition home or self-care (01) | DRG 392 ==
LOC: ANHED 08:21 → ANH3MEDSUR 11:32
PROVIDERS: Student in an Organized Health Care Education/Training Program; Admitting Provider Internal Medicine; Emergency Provider Emergency Medicine; PCP Nurse Practitioner; Visit Provider Internal Medicine
DX: K57.92 Diverticulitis of intestine, part unspecified, without perforation or abscess without bleeding (principal); K21.9 Gastro-esophageal reflux disease without esophagitis; R16.1 Splenomegaly, not elsewhere classified; E03.9 Hypothyroidism, unspecified; E78.2 Mixed hyperlipidemia; E78.5 Hyperlipidemia, unspecified; I10 Essential (primary) hypertension; Z90.49 Acquired absence of other specified parts of digestive tract
CPT/HCPCS: 36415; 74177; 74183; 80048; 80053; 81001; 83690; 83735; 85025; 87086; 96361; 96365; 96375; 96376; 99285; A9270; A9577; G0378; J0696; J1836; J2270; J2405; J7030; J7120; Q9967